=== PATIENT | female | born 1965 | race Caucasian/White ===

== ENCOUNTER → 2021-07-10 | Outpatient (CLI) | payer OTHER ==
[~2021-07-10] MED LIST: ZOFRAN ODT 4 MG4 MG SL
== END ==
LOC: ECHO 09:22
DX: C82.48 Follicular lymphoma grade IIIb, lymph nodes of multiple sites (principal)
CPT/HCPCS: ECHO; 93306

== ENCOUNTER → 2021-12-18 | Outpatient (CLI) | payer OTHER ==
[~2021-12-18] VITALS: Ht 160 cm; Wt 65.8 kg
== END ==
LOC: OPSV 09:18
DX: Z45.2 Encounter for adjustment and management of vascular access device (principal)
CPT/HCPCS: 96523; J1642

== ENCOUNTER → 2022-01-22 | Outpatient (CLI) | payer OTHER ==
[~2022-01-22] VITALS: Ht 160 cm; Wt 65.8 kg
== END ==
LOC: OPSV 09:00
DX: Z45.2 Encounter for adjustment and management of vascular access device (principal); C82.90 Follicular lymphoma, unspecified, unspecified site
CPT/HCPCS: 96523; J1642

== ENCOUNTER 2022-02-05 06:20 | Emergency (ER) | payer OTHER | END 2022-02-05 07:34 | disposition home or self-care (01) | LOC: ER1 06:20 | DX: Z45.2 Encounter for adjustment and management of vascular access device (principal); E78.5 Hyperlipidemia, unspecified; E11.9 Type 2 diabetes mellitus without complications; F17.210 Nicotine dependence, cigarettes, uncomplicated; K21.9 Gastro-esophageal reflux disease without esophagitis; Z85.72 Personal history of non-Hodgkin lymphomas; Z90.49 Acquired absence of other specified parts of digestive tract; Z79.899 Other long term (current) drug therapy; Z88.8 Allergy status to other drugs, medicaments and biological substances; Z79.84 Long term (current) use of oral hypoglycemic drugs | CPT/HCPCS: 99283 ==

== ENCOUNTER 2022-04-03 18:13 | Emergency (ER) | payer OTHER ==
[2022-04-03 20:07] LABS: HEMOGLOBIN 14.1 gm/dl (12.3-15.3); RED BLOOD COUNT 4.79 M/UL (4.00-5.10); WHITE BLOOD COUNT 7.5 K/UL (4.5-11.0)
[2022-04-03 20:30] LABS: BUN/CREATININE RATIO 12 (0-10)
== END 2022-04-03 23:39 | disposition home or self-care (01) ==
LOC: ER1 18:13
PROVIDERS: Emergency Medicine
DX: R07.89 Other chest pain (principal); Z85.72 Personal history of non-Hodgkin lymphomas
CPT/HCPCS: 80048; 85025; 99283; Q9967

== ENCOUNTER → 2022-04-11 | Outpatient (CLI) | payer OTHER ==
[~2022-04-11] VITALS: Ht 160 cm; Wt 65.8 kg
== END ==
LOC: OPSV 07:45
DX: C82.90 Follicular lymphoma, unspecified, unspecified site (principal)
CPT/HCPCS: 96523; J1642